=== PATIENT | male | born 1960 | race Caucasian/White ===

== ENCOUNTER 2025-03-14 14:33 | Outpatient (CLI) | payer MEDICARE, MEDICAID ==
[~2025-03-14 14:33] MED LIST: BACL10TA PO; ESOM20CA PO; HYDR12.5 PO; IBUP-1984 PO; LISI20TA28 PO; LORA10TA7 PO; METF500T PO; SIMV-42 PO; SUCR1ORA2 PO; TERA2CAP4 PO; THYROXINE 137 MCG PO
--- NOTE | 2025-03-14 15:55 | RADIOLOGY REPORT ---
Procedure: CT CT CHEST LOW DOSE Reason for study/Clinical History: NICOTIENE DEPENDENCE COMPARISON: None TECHNIQUE: Multidetector CT of the chest was performed from the lung apices to the upper abdomen without the use of intravenous contract. Axial, coronal and sagittal multiplanar reformats were performed. Radiation Dose Information: CT Dose: CTDI volume is 3.7 mGy. Dose-length product is 154.3 mGy*cm The dose indicators for CT are the volume Computed Tomography (CT) Dose Index (CTDIvol) and the Dose Length Product (DLP), and are measured in units of mGy and mGy-cm, respectively. These indicators are not patient dose, but values generated from the CT scanner acquisition factors. The report includes radiation exposure data for exposures received during this examination. FINDINGS: Lower neck: Normal thyroid. Lungs: No focal consolidation. Centrilobular emphysema. No suspicious pulmonary nodules Heart/Vascular Structures: Severe 4 vessel coronary artery disease Lymph Nodes: No adenopathy Pleura: No pleural effusion or significant pneumothorax. Musculoskeletal: No acute osseous abnormality. Soft tissues: Normal. Upper abdomen: Limited portions of the upper abdomen are unremarkable. IMPRESSION: No suspicious pulmonary nodule. LUNG RADS Category 1: Continue annual screening with LDCT
== END 2025-03-14 23:59 | disposition home or self-care (01) ==
LOC: RAD 14:33
PROVIDERS: ATTEND Family Medicine
DX: Z12.2 Encounter for screening for malignant neoplasm of respiratory organs (principal); J43.2 Centrilobular emphysema; I25.10 Atherosclerotic heart disease of native coronary artery without angina pectoris; F17.200 Nicotine dependence, unspecified, uncomplicated
CPT/HCPCS: 71271